=== PATIENT | female | born 1970 | race Two or more races ===

== ENCOUNTER 2022-06-11 11:18 | Emergency (ER) | payer MEDICARE, MEDICAID ==
[~2022-06-11] VITALS: Ht 175.3 cm; Wt 141.3 kg
[2022-06-11] MEDS ORDERED: methylPREDNISolone SOD SUCC 125 MG/2 ML VL IV ONE (12:45)
[2022-06-11 13:17] LABS: Hemoglobin 13.2 g/dL (12.2-16.2); Mean Corpuscular Hemoglobin 29.6 pg (28.0-32.0); Mean Corpuscular Volume 89.9 fL (80.0-100.0); Red Blood Cells 4.45 10^6/uL (4.0-5.20); Red Cell Distribution Width 16.1 % (11.8-14.3); White Blood Cell 11.4 10^3/uL (4.4-10.8)
[2022-06-11 13:40] LABS: Basophils % (manual) 0 (0.0-2.0); Blast Cells 0; Myelocytes % 0; Promyelocytes % 0; Reactive Lymphocytes 0
[2022-06-11 13:45] LABS: Albumin 3.3 g/dL (3.4-5.0); BUN/Creatinine Ratio 19.3; Bilirubin, Total 0.4 mg/dL (0.2-1.0); Calcium 8.7 mg/dL (8.5-10.1); Potassium 4.7 mmol/L (3.5-5.1); Total Protein 5.8 g/dL (6.4-8.2)
[2022-06-11 14:44] LABS: Band Neutrophils % (manual) 2; Eosinophils % (manual) 1 (0-7); Lymphocytes % (manual) 21 (10.0-50.0); Metamyelocytes % 2; Monocytes % (manual) 5 (0-12)
[2022-06-11] MEDS ORDERED: methylPREDNISolone SOD SUCC 1,000 MG in SODIUM CHL 0.9% 250 ML IV ONE (16:30)
[2022-06-11 21:01] VITALS: BP 115/68
== END 2022-06-11 21:17 | disposition home or self-care (01) ==
LOC: ER 11:18
DX: H46.9 Unspecified optic neuritis (principal); E11.9 Type 2 diabetes mellitus without complications; R10.2 Pelvic and perineal pain
CPT/HCPCS: 36415; 80053; 84702; 85007; 85027; 99284; J2930; J7050

== ENCOUNTER 2022-06-12 09:05 | Emergency (ER) | payer MEDICARE, MEDICAID ==
[~2022-06-12] VITALS: Ht 175.3 cm; Wt 140.4 kg
[2022-06-12 09:41] VITALS: BP 116/90
[2022-06-12] MEDS ORDERED: methylPREDNISolone SOD SUCC 125 MG/2 ML VL IV ONE (09:45)
[2022-06-12] MEDS ORDERED: methylPREDNISolone SOD SUCC 1,000 MG in SODIUM CHL 0.9% 250 ML IV ONE (10:45)
== END 2022-06-12 13:20 | disposition home or self-care (01) ==
LOC: ER 09:05
DX: Z51.81 Encounter for therapeutic drug level monitoring (principal); H46.9 Unspecified optic neuritis; I10 Essential (primary) hypertension; E11.9 Type 2 diabetes mellitus without complications; Z88.0 Allergy status to penicillin
CPT/HCPCS: 96365; 96366; 99284; J2930; J7050

== ENCOUNTER 2022-06-13 09:21 | Emergency (ER) | payer MEDICARE, MEDICAID ==
[~2022-06-13] VITALS: Ht 175.3 cm; Wt 143.7 kg
[2022-06-13] MEDS ORDERED: methylPREDNISolone SOD SUCC 125 MG/2 ML VL IV ONE (14:00)
[2022-06-13] MEDS ORDERED: methylPREDNISolone SOD SUCC 1,000 MG in SODIUM CHL 0.9% 250 ML IV ONE (14:15)
[2022-06-13 17:00] VITALS: BP 114/64
== END 2022-06-13 17:22 | disposition home or self-care (01) ==
LOC: ER 09:21
DX: Z51.81 Encounter for therapeutic drug level monitoring (principal); H46.9 Unspecified optic neuritis; I10 Essential (primary) hypertension; E11.9 Type 2 diabetes mellitus without complications; Z88.0 Allergy status to penicillin
CPT/HCPCS: 96365; 99284; J2930; J7050